=== PATIENT | male | born 1985 | race Caucasian/White ===

== ENCOUNTER → 2019-11-02 13:54 | Outpatient (BNVA) | payer OTHER, SELFPAY | PROVIDERS: PCP Nurse Practitioner Family; Visit Provider Nurse Practitioner | DX: M25.571 Pain in right ankle and joints of right foot (principal); S96.911A Strain of unspecified muscle and tendon at ankle and foot level, right foot, initial encounter; X58.XXXA Exposure to other specified factors, initial encounter; Y99.0 Civilian activity done for income or pay; Z68.23 Body mass index [BMI] 23.0-23.9, adult; F17.211 Nicotine dependence, cigarettes, in remission | CPT/HCPCS: 73610 ==

== ENCOUNTER 2020-11-11 16:02 | Emergency (ER) | payer OTHER, SELFPAY ==
--- NOTE | 2020-11-11 16:11 | XRR_ITS ---
PROCEDURE INFORMATION: Exam: XR Left Wrist Exam date and time: 11/11/2020 4:11 PM Age: 35 years old Clinical indication: Pain; Wrist; Left; Additional info: Injury TECHNIQUE: Imaging protocol: XR Left wrist. Views: 3 or more views. COMPARISON: No relevant prior studies available. FINDINGS: Bones/joints: Normal. Soft tissues: Soft tissue swelling. XR/XR wrist LT min 3V* [id number] IMPRESSION: 1. Negative for osseous injury. 2. Soft tissue injury.
[2020-11-11 16:14] VITALS: BP 125/79; PULSE 66; RESP 18; TEMP 36.7; O2SAT 97; BMI 23.4
--- NOTE | 2020-11-11 17:07 | W.ED.EXTPRO ---
HPI - Extremity Problem General: Chief complaint: Extremity Injury, Upper Stated complaint: left wrist injury Time Seen by Provider: 11/11/20 17:01 History of Present Illness: HPI Narrative: 35-year-old male presents emergency room laceration of the volar aspect of his left wrist he was pushing a window unit into window space and managed to break the wound with a still laceration duplex extending fingers against resistance without difficulty his last tetanus shot was a year ago. Onset (ago): minute(s) Pain Consistency: constant Location: left Quality: sharp Radiation: none Relieving factors: nothing Exacerbating factors: range of motion and palpation Associated symptoms: Deny arthralgias, chest pain, fever(s), myalgias or rash Review of Systems Const: Denies: fever(s) Card: Denies: chest pain or edema Resp: Denies: dyspnea, productive cough or non-productive cough GI: Denies: abdominal pain, nausea, vomiting, diarrhea or constipation Skin/Breast: Denies: rash PFSH ED PFSH: Social History Smoking and tobacco status: former smoker Alcohol intake: current Physical Exam Const: COMMON NORMALS: no acute distress GENERAL APPEARANCE: cooperative and comfortable ORIENTATION/CONSCIOUSNESS: Yes awake, Yes oriented to person, Yes oriented to place and Yes oriented to time Neck/C-Spine: COMMON NORMALS: no JVD Resp: COMMON NORMALS: normal respiratory effort, No retractions, No use of accessory muscles and clear to auscultation bilaterally AUSCULTATION: clear to auscultation bilaterally Cardio: COMMON NORMALS: no JVD, regular rate, regular rhythm and No murmurs present (Cardio) RATE: regular rate RHYTHM: regular rhythm Neuro: SENSORIUM/ORIENTATION: Yes oriented to person, Yes oriented to place and Yes oriented to time Skin: COMMON NORMALS: no rashes or lesions noted NARRATIVE SKIN EXAM: Stellate laceration left wrist 4 to 5 cm in length total. GENERAL SKIN EXAM: no rashes or lesions noted Procedures Laceration Laceration 1: Site: upper extremity Side (If applicable): left Size (cm): 5 Description: flap Depth: simple, single layer Local Anesthetic: lidocaine 1% and with epi Amount of anesthesia used (mL): 3 Skin layer closed with: nylon Size (cm): 4-0 Number of sutures: 4 Technique: simple, interrupted (3) and running (1) Course Vital Signs: Vital signs: Vital Signs Temperature 98.1 F 11/11/20 17:59 Pulse Rate 66 11/11/20 16:14 Respiratory Rate 18 11/11/20 17:59 Blood Pressure 125/79 11/11/20 16:14 Pulse Oximetry 97 11/11/20 17:59 MDM - Extremity (Nontraumatic) MDM Narrative: Medical decision making narrative: Sutures out in 7 days. Reviewed wound care Discharge Plan Discharge Patient Disposition: Home Clinical Impression: Laceration Condition: Stable Prescriptions: New mupirocin 2 % ointment 1 applic topical BID Qty: 15 RF: 0 Discharge Orders: Discharge ED (Routine); Ordered 11/11/20 Ordered By: Ji Rubio Referrals: Ravi Victoria FNP [Primary Care Provider] - Discharge Diet: Usual diet Discharge Activity: Resume usual activity Patient Instructions: Opioid Safety Coding Level of Care Code ED [employer] for Chg Fwd Exam Detailed
[2020-11-11 17:59] VITALS: RESP 18; TEMP 36.7; O2SAT 97
== END 2020-11-11 18:01 | disposition home or self-care (01) ==
PROVIDERS: Emergency Provider Family Medicine; PCP Nurse Practitioner Family
DX: S61.512A Laceration without foreign body of left wrist, initial encounter (principal); Z87.891 Personal history of nicotine dependence; W25.XXXA Contact with sharp glass, initial encounter
CPT/HCPCS: 12002; 73110; 99282